=== PATIENT | female | born 1960 | race Caucasian/White ===

== ENCOUNTER 2017-05-25 15:33 | Emergency (ER) | payer BC, OTHER ==
[~2017-05-25] VITALS: Ht 172.7 cm; Wt 102.1 kg
--- OUTSIDE RECORDS SUMMARY | 2017-05-25 15:36 | XMS REPORT | Clinical Summary ---
Author Author JOHAN [email or web address] [facility] [employer] [facility] Address Unknown Phone Unavailable Care Team Providers Care Assurance Auditor Name Role Phone PCP Unavailable Allergies Active Allergy Reactions Severity Noted Date Comments Iodinated Contrast- Oral Anaphylaxis High 10/04/2016 And Iv Dye Morpholine Analogues Itching 10/04/2016 Current Medications Prescription Sig. Disp. Refills Start End Date Status Date levothyroxine (SYNTHROID, Take 100 mcg by mouth Active LEVOTHROID) 100 MCG Every morning on an empty tablet stomach. rOPINIRole (REQUIP) 2 MG Take 2 mg by mouth Active tablet nightly. aspirin 81 MG EC tablet Take 1 tablet (81 mg 30 tablet 0 10/06/19 Active total) by mouth daily. 17 18 carvedilol (COREG) 3.125 Take 1 tablet (3.125 mg 60 tablet 1 10/06/19 10/06/19 Active MG tablet total) by mouth 2 (two) 17 18 times daily with breakfast and dinner. albuterol HFA (VENTOLIN Inhale 1 puff by mouth 1 Inhaler 0 10/06/19 10/06/19 Active HFA) 90 mcg/actuation via inhaler every 6 (six) 17 18 inhaler hours as needed for Wheezing or Shortness of Breath. benzonatate (TESSALON) Take 1 capsule (200 mg 20 capsule 0 10/06/19 10/13/19 200 MG capsule total) by mouth 3 (three) 17 17 times daily as needed for Cough for up to 7 days. omeprazole (PRILOSEC) 20 Take 1 capsule (20 mg 14 capsule 0 10/06/19 10/20/19 MG capsule total) by mouth daily for 17 17 14 days. Active Problems Problem Noted Date Left ventricular diastolic dysfunction, NYHA class 1 10/05/2016 Dyspnea on exertion 10/04/2016 Atypical chest pain 10/04/2016 Hypertensive urgency 10/04/2016 Bilateral leg edema 10/04/2016 Hypothyroidism 10/04/2016 RLS (restless legs syndrome) 10/04/2016 Encounters Date Type Specialty Care Team Description 10/04/2016 [facility] General Internal Medicine Sesar Mcdaniel MD Shortness of breath - Encounter Deng Torrez MD (Primary Dx) 10/05/2016 10/04/2016 Orders Only General Internal Medicine after 05/24/2016 Social History Tobacco Use Types Packs/Day Years Used Date Never Assessed Sex Assigned at Date Recorded Not on file Last Filed Vital Signs Vital Sign Reading Time Taken Blood Pressure 124/59 10/05/2016 12:11 PM CDT Pulse 84 10/05/2016 12:11 PM CDT Temperature 36.2 C (97.2 F) 10/05/2016 12:11 PM CDT Respiratory Rate 18 10/05/2016 12:11 PM CDT Oxygen Saturation 97% 10/05/2016 12:11 PM CDT Inhaled Oxygen - - Concentration Weight 140.7 kg (310 lb 2 oz) 10/04/2016 9:28 PM CDT Height 172.7 cm (5' 8") 10/04/2016 9:28 PM CDT Body Mass Index 47.15 10/04/2016 9:28 PM CDT Plan of Treatment Not on file Results * RHYTHM STRIP - SCAN (11/01/2016 8:50 AM) Only the most recent of 2 results within the time period is included. * 2D Echo W/Doppler(CW/PW/Color) (10/05/2016 10:41 AM) Component Value Ref Range Ejection Fraction LV EF 62.3 % (55-75) Index 25.3 %/m2 Specimen Performing Laboratory [facility] [address] [place] [id number] Voice:[phone] Transthoracic Echocardiogram Pat.Name:PEBBLES ESCOBEDO Pat.ID:[id number] .Date: 10/05/2016 Refer.MD:DENG TORREZ Exam Time: 10:41:00 AM Study Type:Echo Complete Height:68inWeight:310lb BSA: 2.46 m2 DOBAge:9,56Y Sex: FEMALEBP: 121/59 HR:81 bpmSonogrphr: Julio Bakre, [facility] Pat. Stat.:Inpatient Room:923 Reason for Study:Shortness of breath Procedures:2D ECHO W/ DOPPLER (CW/PW/COLOR) FINDINGS: Rhythm/BP: Regular sinus rhythm during the exam. LV: All of the LV segments appear hyperkinetic. Global LV systolicfunction is hyperdynamic. Mild concentric LV hypertrophy.LVEF by quantitative assessment is increased (>60%).Left ventricular chamber size (by vol index) is normal(female - LVED vol -29-61 ml/m2). The LV endocardiumis adequately visualized. Grade 1 diastolic dysfunction(impaired relaxation and low-normal LA pressure).The LVEF was measured using Morales's single planemethod (apical 4 chamber). LA: LA size is normal (16-34 ml/m2). LA is adequately visualized. RV: RV chamber size is mildly enlarged. Global RV systolic functionis normal. RA: The RA is well visualized. RA cavity size is mildly enlarged. AV: Normal AoV structure and function. No evidence of aortic regurgitation. MV: Normal MV structure and function. No evidence of mitral regurgitation. TV: Normal TV structure and function. No evidence of tricuspid regurgitation.Unable to estimate peak systolic PA pressure;inadequate TR velocity signal. PV: Normal PV structure and function by limited views and Doppler. AO: Aortic root size (Sinus of Valsalva diameter) is normal. Pericard: No pericardial effusion is visualized. A trivial pericardial effusionis suspected based on limited views. Systemic Veins: The inferior vena cava is not visualized. Comparison: No prior exam available for comparison. Quality:Technically adequate exam. MEASUREMENTS: 2D LV EF SinglePlane LV Ad 30.5 cm2(9.5-22.3)* LV CO 5.36 l/min LV As 17.3 cm2(4-11.6)* LV CI 2.18 l/min/m2 HKRIU460 ml (59-136) Index42.9 ml/ m2 LV SV 65.4 ml LVESV 39.6 mlHR 82 bpm Left Ventricle LV A% 43.3 %(36-64) LA Sng Plane LA Vol60.5 mlIndex 24.6 ml/m2 LA Area 20.4 cm2(8.8-23.4) Parasternal Long [place]hees Ao An 2.12 cm (1.4-2.6) LV%fs 51.7 %(25-46)* Ao Rtd 3.2 cmLVPWd 1.2 cm IVSd1.21 cm LA Ds4.2 cm (2.3-3.8)* LVIDd4.7 cm (4.3-5.1) LV Wmn 1.2 cm LVIDs 2.27 cm (2-4) DOPPLER AV LVOT For Flow [id number] cm/s (70-110)* LVOT CO 6.94 l/min LVOT VTI25.6 cmLVOT CI 2.82 l/min/m2 LVOTpkPG5.75 mmHgLVOT Area 3.46 cm2 LVOTmnPG3.02 mmHgHR 78 bpm LVOT SV 88.8 ml Aortic Valve AV DI0.948 SVi (LVOT) 36.1 AV AV For Flow/LUANA AV pkVel 133 cm/s (100-170) AV AC/ET 0.423 AV mnVel98 cm/sAVpkAcRt 2618 cm/s2 AV pkPG 7.06 mmHgAV DeRt 482 cm/s2 AV mnPG 4.47 mmHgArea (VTI) 3.28 cm2(3-5) AV VTI27 cmArea (Benjamin) 3.12 cm2(3-5) AV ET276 msecAV AC 117 msec (83-118) MV E/A Ratio MV pkE64.1 cm/s (60-130) MV E/A 0.812 MV pkA79 cm/s Signed 10/05/2016 12:34 PM Bruno Malagon M.D. Procedure Note Interface, External Ris In - 10/05/2016 12:35 PM CDT Echocardiography Laboratory [address] [place] [address] Voice: [phone] Transthoracic Echocardiogram Pat.Name: PEBBLES ESCOBEDO Pat.ID: [id number] .Date: 10/05/2016 Refer.MD: DENG TORREZ Exam Time: 10:41:00 AM Study Type:Echo Complete Height: 68in Weight: 310lb BSA: 2.46 m2 Age: 1 1960,56Y Sex: FEMALE BP: 121/59 HR: 81 bpm Sonogrphr: ADA Reyes Pat. Stat.:Inpatient Room: 923 Reason for Study:Shortness of breath Procedures:2D ECHO W/ DOPPLER (CW/PW/COLOR) FINDINGS: Rhythm/BP: Regular sinus rhythm during the exam. LV: All of the LV segments appear hyperkinetic. Global LV systolic function is hyperdynamic. Mild concentric LV hypertrophy. LVEF by quantitative assessment is increased (>60%). Left ventricular chamber size (by vol index) is normal (female - LVED vol - 29-61 ml/m2). The LV endocardium is adequately visualized. Grade 1 diastolic dysfunction (impaired relaxation and low-normal LA pressure). The LVEF was measured using Morales's single plane method (apical 4 chamber). LA: LA size is normal (16-34 ml/m2). LA is adequately visualized. RV: RV chamber size is mildly enlarged. Global RV systolic function is normal. RA: The RA is well visualized. RA cavity size is mildly enlarged. AV: Normal AoV structure and function. No evidence of aortic regurgitation. MV: Normal MV structure and function. No evidence of mitral regurgitation. TV: Normal TV structure and function. No evidence of tricuspid regurgitation. Unable to estimate peak systolic PA pressure; inadequate TR velocity signal. PV: Normal PV structure and function by limited views and Doppler. AO: Aortic root size (Sinus of Valsalva diameter) is normal. Pericard: No pericardial effusion is visualized. A trivial pericardial effusion is suspected based on limited views. Systemic Veins: The inferior vena cava is not visualized. Comparison: No prior exam available for comparison. Quality: Technically adequate exam. MEASUREMENTS: 2D LV EF SinglePlane LV Ad 30.5 cm2 (9.5-22.3)* LV CO 5.36 l/min LV As 17.3 cm2 (4-11.6)* LV CI 2.18 l/min/m2 LVEDV 105 ml (59-136) Index 42.9 ml/m2 LV SV 65.4 ml LVESV 39.6 ml HR 82 bpm Left Ventricle LV A% 43.3 % (36-64) LA Sng Plane LA Vol 60.5 ml Index 24.6 ml/m2 LA Area 20.4 cm2 (8.8-23.4) Parasternal Long [place] Ao An 2.12 cm (1.4-2.6) LV%fs 51.7 % (25-46)* Ao Rtd 3.2 cm LVPWd 1.2 cm IVSd 1.21 cm LA Ds 4.2 cm (2.3-3.8)* LVIDd 4.7 cm (4.3-5.1) LV Wmn 1.2 cm LVIDs 2.27 cm (2-4) DOPPLER AV LVOT For Flow LVOTpkVel 120 cm/s (70-110)* LVOT CO 6.94 l/min LVOT VTI 25.6 cm LVOT CI 2.82 l/min/m2 LVOTpkPG 5.75 mmHg LVOT Area 3.46 cm2 LVOTmnPG 3.02 mmHg HR 78 bpm LVOT SV 88.8 ml Aortic Valve AV DI 0.948 SVi (LVOT) 36.1 AV AV For Flow/LUANA AV pkVel 133 cm/s (100-170) AV AC/ET 0.423 AV mnVel 98 cm/s AVpkAcRt 2618 cm/s2 AV pkPG 7.06 mmHg AV DeRt 482 cm/s2 AV mnPG 4.47 mmHg Area (VTI) 3.28 cm2 (3-5) AV VTI 27 cm Area (Benjamin) 3.12 cm2 (3-5) AV ET 276 msec AV AC 117 msec (83-118) MV E/A Ratio MV pkE 64.1 cm/s (60-130) MV E/A 0.812 MV pkA 79 cm/s Signed 10/05/2016 12:34 PM Bruno Malagon M.D. * PERIPHERAL VASCULAR REPORT - SCAN (10/05/2016 7:20 AM) * Hepatic function panel (10/05/2016 4:33 AM) Component Value Ref Range Protein, Total 6.6 6.0 - 8.3 gm/dL Albumin 3.6 3.5 - 5.0 g/dL Total Bilirubin 0.3 0.2 - 1.2 mg/dL Bilirubin, Direct 0.1 0.1 - 0.5 mg/dL Alkaline Phosphatase 77 40 - 150 U/L AST 25 5 - 34 U/L ALT 26 6 - 55 U/L Specimen Performing Laboratory Blood [address] [address] * Basic metabolic panel (10/05/2016 4:33 AM) Only the most recent of 2 results within the time period is included. Component Value Ref Range Sodium 138 136 - 145 meq/L Potassium 3.8 3.5 - 5.1 meq/L Chloride 103 98 - 107 meq/L CO2 26 22 - 29 meq/L BUN 15 7 - 21 mg/dL Creatinine 0.67 0.57 - 1.25 mg/dL Glucose 143 (H) 70 - 105 mg/dL Calcium 9.6 8.4 - 10.2 mg/dL EGFR 90Comment: ESTIMATED GFR IS NOT ACCURATE mL/min/1.73 sq m CREATININE CLEARANCE IN PREDICTING GLOMERULAR FILTRATION RATE. ESTIMATED GFR IS NOT APPLICABLE FOR DIALYSIS PATIENTS. Specimen Performing Laboratory Blood [address] [address] * Venous doppler legs bilateral (10/04/2016 10:05 PM) Component Value Ref Range Ejection Fraction Specimen Performing Laboratory [facility]CHO [facility] MKCKESSON CPACS Impressions Right Impression 1. There is no deep venous obstruction in the common femoral, profunda femoral, femoral, popliteal, posterior tibial or peroneal veins. 2. There is no superficial venous obstruction in the great saphenous vein. Left Impression 1. There is no deep venous obstruction in the common femoral, profunda femoral, femoral, popliteal, posterior tibial or peroneal veins. 2. There is no superficial venous obstruction in the great saphenous vein. Conclusions Summary Venous duplex imaging and compression of the bilateral lower extremities were performed. The veins were adequately visualized. The bilateral venous systems were patent and compressible with no evidence of thrombus. The venous Doppler waveforms were phasic with respiration . Signature Velocities are measured in cm/s ; Diameters are measured in cm Narrative [facility] - Lower Extremities DVT Study Demographics Patient Name Deana ESCOBEDO of Study10/04/2016 LESLIE [id number] Age 56 Visit Number [id number] Gender Female Accession Number [id number] Date of Birth1960 [facility] Deng Temple Room [id number] Physician JoeographJordon SaucedoInterpreting Misael Vidal MD, EMELYN Procedure Type of Study: Veins: Lower Extremities DVT Study, VENOUS DOPPLER LEG, BILATERAL. Indications for Study:Leg swelling. Patient Status:STAT. Study Location:Portable. Technical Quality:Adequate visualization. Risk Factors History of Disease + + + + !Diagnosis!Date !Comments ! + + + + !History/Risk Factors:!10/04/2016! Obesity! ! !!Leg swelling ! ! !!Chest pain ! + + + + Procedure Note Interface, External Ris In - 10/05/2016 4:41 AM CDT PV LAB - Lower Extremities DVT Study Demographics Patient Name PEBBLES ESCOBEDO Date of Study 10/04/2016 LESLIE Age 56 Visit Number [id number] Gender Female Accession Number [id number] Date of 1960 Referring Shan MiKojo Room Number 923 Physician Test Desk Trouble Locator Kendal Saucedo Interpreting Praveena Partida Maxime Physician , RPVI Procedure Type of Study: Veins: Lower Extremities DVT Study, VENOUS DOPPLER LEG, BILATERAL. Indications for Study:Leg swelling. Patient Status:STAT. Study Location:Portable. Technical Quality:Adequate visualization. Risk Factors History of Disease + + + + !Diagnosis !Date !Comments ! + + + + !History/Risk Factors: !10/04/2016!Obesity ! ! ! !Leg swelling ! ! ! !Chest pain ! + + + + Impressions Right Impression 1. There is no deep venous obstruction in the common femoral, profunda femoral, femoral, popliteal, posterior tibial or peroneal veins. 2. There is no superficial venous obstruction in the great saphenous vein. Left Impression 1. There is no deep venous obstruction in the common femoral, profunda femoral, femoral, popliteal, posterior tibial or peroneal veins. 2. There is no superficial venous obstruction in the great saphenous vein. Conclusions Summary Venous duplex imaging and compression of the bilateral lower extremities were performed. The veins were adequately visualized. The bilateral venous systems were patent and compressible with no evidence of thrombus. The venous Doppler waveforms were phasic with respiration . Signature Velocities are measured in cm/s ; Diameters are measured in cm * Troponin I (10/04/2016 8:50 PM) Only the most recent of 2 results within the time period is included. Component Value Ref Range Troponin I <0.01 0.00 - 0.03 ng/mL Specimen Performing Laboratory Blood - Arm, Left [address] [address] Narrative Effective 03/09/2014: Reference Range Change New: 0.00-0.03 Previous 0.00-0.15 Troponin I (TnI) levels must be interpreted in the context of the presenting symptoms and the clinical findings. Elevated TnI levels indicate myocardial damage, but are not specific for ischemic heart disease. Elevated TnI levels are seen in patients with other cardiac conditions (including myocarditis and congestive heart failure), and slight TnI elevations occur in patients with other conditions, including sepsis, renal failure, acidosis, acute neurological disease, and persistent tachyarrhythmia. * TSH (10/04/2016 8:50 PM) Component Value Ref Range TSH 2.15 0.35 - 4.94 uIU/mL Specimen Performing Laboratory Blood - Arm, [place] [address] * Potassium (10/04/2016 8:50 PM) Component Value Ref Range Potassium 3.7 3.5 - 5.1 meq/L Specimen Performing Laboratory Blood - Arm, [place] [address] * Creatine Kinase (CK), Total and MB (10/04/2016 8:50 PM) Only the most recent of 2 results within the time period is included. Component Value Ref Range Total CK 95 29 - 200 U/L CK-MB 1.3 0.0 - 6.6 ng/mL MB Relative Index 1.4 % Specimen Performing Laboratory Blood - Arm, [place] [address] Narrative Effective 03/09/2014: CK-MB Reference Range Change New: 0.0-6.6Previous: 0.0-4.9 CK-MB Reference Range: <6.7Normal 6.7-10.0Borderline >10.0 Abnormal * CT chest without IV contrast (10/04/2016 8:31 PM) Specimen Performing Laboratory Eduquia Narrative FINAL REPORT History: Chest pain, shortness of breath. TECHNIQUE: Helical CT of the chest was performed without contrast utilizing multiple windows, sagittal and coronal reformations. This exam was performed according to our departmental dose optimization program which includes automated exposure control, adjustment of the mA and/or KV according to the patient's size and/or use of iterative reconstruction technique. FINDINGS: The heart, mediastinum and great vessels appear unremarkable. No mediastinal or hilar adenopathy. The central airways are patent. Lungs are clear, free of edema, focal consolidation or visible effusions. No pneumothorax. Bones are unremarkable except for moderate diffuse degenerative changes of the spine. Images obtained through the upper abdomen show diffusely decreased hepatic attenuation, likely representing diffuse fatty infiltration of the liver. Visible portions of the upper abdomen are otherwise unremarkable. IMPRESSION: 1. No acute cardiopulmonary abnormalities. 2. Probable diffuse fatty infiltration of the liver. Signed: Bartolome Schulz MD Report Verified Date/Time:10/04/2016 20:50:44 Reading Location: [facility] Diagnostic Imaging Reading Room - [place] [address] Procedure Note Interface, External Ris In - 10/04/2016 8:52 PM CDT FINAL REPORT History: Chest pain, shortness of breath. TECHNIQUE: Helical CT of the chest was performed without contrast utilizing multiple windows, sagittal and coronal reformations. This exam was performed according to our departmental dose optimization program which includes automated exposure control, adjustment of the mA and/or KV according to the patient's size and/or use of iterative reconstruction technique. FINDINGS: The heart, mediastinum and great vessels appear unremarkable. No mediastinal or hilar adenopathy. The central airways are patent. Lungs are clear, free of edema, focal consolidation or visible effusions. No pneumothorax. Bones are unremarkable except for moderate diffuse degenerative changes of the spine. Images obtained through the upper abdomen show diffusely decreased hepatic attenuation, likely representing diffuse fatty infiltration of the liver. Visible portions of the upper abdomen are otherwise unremarkable. IMPRESSION: 1. No acute cardiopulmonary abnormalities. 2. Probable diffuse fatty infiltration of the liver. Signed: Bartolome Schulz MD Report Verified Date/Time: 10/04/2016 20:50:44 Reading Location: [facility] Diagnostic Imaging Reading Room - [place] [address] * ED ECG Interpretation (10/04/2016 7:41 PM) Sesar Richter MD 10/04/20167:41 PM ECG/EKG Interpretation Date/Time: 10/04/2016 7:40 PM Performed by: SESAR MCDANIEL Authorized by: DENG TORREZ The ECG was interpreted by ED physician. The ECG is interpreted as sinus tachycardia. Rate is tachycardic. Heart rate is 115 BPM. Abnormal conduction noted: LAFB. ST segments normal. T waves normal. [place] is left. ECG reviewed and does not meet STEMI criteria. Comments: LEATHER WHITENER: SR @ 115 BPM * NM lung scan perfusion particulate vent (10/04/2016 5:48 PM) Specimen Performing Laboratory GE RIS Narrative FINAL REPORT PROCEDURE: V/Q LUNG SCAN CPT CODE: 85653 INDICATION: Dyspnea, chest pain PROTOCOL: 10.9 mCi ofXe-133 gas was administered by inhalation. Single breath and rebreathing/washout images were obtained in the anterior and the posterior projections.4.3 mCi of Tc-99m MAA was then injected intravenously, and static perfusion images were obtained in multiple projections. FINDINGS: Ventilation: Initial tracer distribution is physiological. Washout proceeds normally. Perfusion:Tracer distribution is physiological. IMPRESSION: Normal ventilation/perfusion lung scan. Signed: Isidro Castro MD Report Verified Date/Time:10/04/2016 18:34:22 Reading Location: [address] Reading Room Procedure Note Interface, External Ris In - 10/04/2016 6:36 PM CDT FINAL REPORT PROCEDURE: V/Q LUNG SCAN CPT CODE: 49790 INDICATION: Dyspnea, chest pain PROTOCOL: 10.9 mCi of Xe-133 gas was administered by inhalation. Single breath and rebreathing/washout images were obtained in the anterior and the posterior projections. 4.3 mCi of Tc-99m MAA was then injected intravenously, and static perfusion images were obtained in multiple projections. FINDINGS: Ventilation: Initial tracer distribution is physiological. Washout proceeds normally. Perfusion: Tracer distribution is physiological. IMPRESSION: Normal ventilation/perfusion lung scan. Signed: Isidro Castro MD Report Verified Date/Time: 10/04/2016 18:34:22 Reading Location: [address] [place] Reading Room * B-type Natriuretic Factor (BNP) (10/04/2016 4:36 PM) Component Value Ref Range BNP 34 0 - 100 pg/mL Specimen Performing Laboratory Blood [address] [address] * PT/PTT (10/04/2016 4:33 PM) Component Value Ref Range Protime 12.8 11.7 - 14.7 seconds INR 1.0 <=5.9 PTT 26.8 22.5 - 36.0 seconds Specimen Performing Laboratory Blood [address] [address] Narrative RECOMMENDED COUMADIN/WARFARIN INR THERAPY RANGES STANDARD DOSE: 2.0 - 3.0 Includes: PROPHYLAXIS for venous thrombosis, systemic embolization; TREATMENT for venous thrombosis and/or pulmonary embolus. HIGH RISK: Target INR is 2.5-3.5 for patients with mechanical heart valves. * CBC with platelet count + automated diff (10/04/2016 4:33 PM) Component Value Ref Range WBC 9.6 4.0 - 10.0 K/ L RBC 4.77 4.00 - 5.00 M/ L Hemoglobin 12.6 12.0 - 15.0 GM/DL Hematocrit 38.6 36.0 - 45.0 % MCV 80.8 (L) 82.0 - 99.0 fL MCH 26.5 (L) 27.0 - 33.0 pg MCHC 32.8 32.0 - 36.0 GM/DL RDW 15.9 (H) 10.3 - 14.2 % Platelets 177 150 - 430 K/CU MM MPV 9.9 6.5 - 10.5 fL nRBC 0 0 - 0 /100 WBC % Neutros 68 % % Lymphs 24 % % Monos 6 % % Eos 2 % % Baso 0 % # Neutros 6.48 1.80 - 8.00 K/ L # Lymphs 2.32 1.48 - 4.50 K/ L # Monos 0.60 0.00 - 1.30 K/ L # Eos 0.15 0.00 - 0.50 K/ L # Baso 0.04 0.00 - 0.20 K/ L Specimen Performing Laboratory Blood [address] [address] Narrative 0.00 * D-dimer, quantitative (10/04/2016 4:33 PM) Component Value Ref Range D-Dimer, Quant 0.69 (H) <0.50 MG/L FEU Specimen Performing Laboratory Blood [place] [id number] Narrative Intended Use: The D-Dimer Assay can be used to aid in the diagnosis of Deep Vein Thrombosis (DVT) and Pulmonary Embolism Disease (PED). In patients with low pre-test probability, various studies concerning STA Liatest D-dimer test have reported that with a cutoff value of 0.50 MG/L FEU, the Negative Predictive Value (NPV) regarding the exclusion of thrombosis is within 95-100% range. * CBC with platelet count + automated diff (10/04/2016 4:33 PM) Specimen Performing Laboratory Blood Narrative The following orders were created for panel order CBC with platelet count + automated diff. Procedure Abnormality Status --------- - ------ CBC with platelet count ...[[id number]]AbnormalFinal result Please view results for these tests on the individual orders. * Magnesium (10/04/2016 4:33 PM) Component Value Ref Range Magnesium 2.5Comment: Specimen moderately hemolyzed 1.6 - 2.6 mg/dL Specimen Performing Laboratory Blood [address] [address] * ECG 12 lead (10/04/2016 4:25 PM) Specimen Performing Laboratory GE MUSE Narrative Ventricular Rate 115 BPM Atrial Rate 115 BPM P-R Interval 168 ms QRS Duration 86 ms Q-T Interval 314 ms QTC Calculation(Bazett) 434 ms P [place] 38 degrees R [place] -49 degrees T [place] 47 degrees Sinus tachycardia Left anterior fascicular block Possible Anterolateral infarct , age undetermined Abnormal ECG When compared with ECG of 02-FEB-2007 07:53, Vent. rate has increased BY49 BPM Borderline criteria for Anterolateral infarct are now Present T wave inversion no longer evident in Inferior leads Confirmed by MD SHAR, IHAB ([id number]) on 10/05/2016 7:09:50 AM Procedure Note Interface, External Ris In - 10/05/2016 7:09 AM CDT Ventricular Rate 115 BPM Atrial Rate 115 BPM P-R Interval 168 ms QRS Duration 86 ms Q-T Interval 314 ms QTC Calculation(Bazett) 434 ms P [place] 38 degrees R [place] -49 degrees T [place] 47 degrees Sinus tachycardia Left anterior fascicular block Possible Anterolateral infarct , age undetermined Abnormal ECG When compared with ECG of 02-FEB-2007 07:53, Vent. rate has increased BY 49 BPM Borderline criteria for Anterolateral infarct are now Present T wave inversion no longer evident in Inferior leads Confirmed by MD SHAR, IHAB ([id number]) on 10/05/2016 7:09:50 AM after 05/24/2016
--- OUTSIDE RECORDS SUMMARY | 2017-05-25 15:36 | XMS REPORT ---
Author Author [facility] Address Unknown Phone Unavailable Care Team Providers Care Peanut Butter Maker Name Role Phone DEEP MCDANIEL Unavailable Unavailable Problems This patient has no known problems. Allergies, Adverse Reactions, Alerts This patient has no known allergies or adverse reactions. Medications This patient has no known medications. Results Test Description Test Time Test Comments Text Results Atomic Results Result Comments HEPATIC FUNCTION PANEL 2016-10-05 05:14:00 TOTAL PROTEIN (BEAKER) (test begk=420) 6.6 gm/dL 6.0-8.3 ALBUMIN (BEAKER) (test frkc=7880) 3.6 g/dL 3.5-5.0 BILIRUBIN TOTAL (BEAKER) (test ikgx=729) 0.3 mg/dL 0.2-1.2 BILIRUBIN DIRECT (BEAKER) (test ylvn=020) 0.1 mg/dL 0.1-0.5 ALKALINE PHOSPHATASE (BEAKER) (test qfst=454) 77 U/L 40-150 AST (SGOT) (BEAKER) (test nnyg=441) 25 U/L 5-34 ALT (SGPT) (BEAKER) (test udtv=442) 26 U/L 6-55 BASIC METABOLIC [id number] 05:14:00* Test Item Value Reference Range Comments SODIUM (BEAKER) (test depc=754) 138 meq/L 136-145 POTASSIUM (BEAKER) (test qaen=080) 3.8 meq/L 3.5-5.1 CHLORIDE (BEAKER) (test ktfe=519) 103 meq/L 98-107 CO2 (BEAKER) (test sdhh=439) 26 meq/L 22-29 BLOOD UREA NITROGEN (BEAKER) (test ukot=193) 15 mg/dL 7-21 CREATININE (BEAKER) (test vbkv=541) 0.67 mg/dL 0.57-1.25 GLUCOSE RANDOM (BEAKER) (test njyq=395) 143 mg/dL 70-105 CALCIUM (BEAKER) (test bsnz=833) 9.6 mg/dL 8.4-10.2 EGFR (BEAKER) (test hnfn=7235) 90 mL/min/1.73 sq m ESTIMATED GFR IS NOT ACCURATE CREATININE CLEARANCE IN PREDICTING GLOMERULAR FILTRATION RATE. ESTIMATED GFR IS NOT APPLICABLE FOR DIALYSIS PATIENTS. [id number] 21:40:00* Test Item Value Reference Range Comments THYROID STIMULATING HORMONE (JENYAKER) (test zrys=749) 2.15 uIU/mL 0.35-4.94 CREATINE KINASE (CK), TOTAL AND [id number] 21:25:00* Test Item Value Reference Range Comments CREATINE KINASE TOTAL (BEAKER) (test rzmr=998) 95 U/L 29-200 CREATINE KINASE-MB (BEAKER) (test hdvd=930) 1.3 ng/mL 0.0-6.6 CREATINE KINASE-MB INDEX (BEAKER) (test ayaj=283) 1.4 % Effective 03/09/2014: CK-MB Reference Range ChangeNew: 0.0-6.6 Previous: 0.0- 4.9CK-MB Reference Range:<6.7 Normal6.7-10.0 Borderline>10.0 AbnormalTROPONIN [id number] 21:25:00* Test Item Value Reference Range Comments TROPONIN I (JENYAKER) (test yznh=478) < ng/mL 0.00-0.03 Effective 03/09/2014: Reference Range ChangeNew: 0.00-0.03 Previous 0.00- 0.15Troponin I (TnI) levels must be interpreted in [...] failure, acidosis, acute neurological disease, and persistent tachyarrhythmia.[id number] 21:18:00* Test Item Value Reference Range Comments POTASSIUM (BEAKER) (test kjnq=455) 3.7 meq/L 3.5-5.1 [id number] 17:52:00* Test Item Value Reference Range Comments D-DIMER QUANTITATIVE (BEAKER) (test jtkp=172) 0.69 MG/L FEU <0.50 Intended Use: The D-Dimer Assay can be used to aid in the diagnosis of Deep Vein Thrombosis (DVT) and Pulmonary Embolism Disease (PED).In patients with low pre-test probability, various studies concerning STA Liatest D-dimer test have reported that with a cutoff value of 0.50 MG/L FEU, the Negative Predictive Value (NPV) regarding the exclusion of thrombosis is within 95-100% range.CREATINE KINASE (CK), TOTAL AND [id number] 17:21:00* Test Item Value Reference Range Comments CREATINE KINASE TOTAL (BEAKER) (test mani=743) 114 U/L 29-200 CREATINE KINASE-MB (BEAKER) (test pyxb=434) 1.5 ng/mL 0.0-6.6 CREATINE KINASE-MB INDEX (BEAKER) (test lfql=347) 1.3 % Effective 03/09/2014: CK-MB Reference Range ChangeNew: 0.0-6.6 Previous: 0.0- 4.9CK-MB Reference Range:<6.7 Normal6.7-10.0 Borderline>10.0 AbnormalTROPONIN [id number] 17:21:00* Test Item Value Reference Range Comments TROPONIN I (BEAKER) (test kjso=282) < ng/mL 0.00-0.03 Effective 03/09/2014: Reference Range ChangeNew: 0.00-0.03 Previous 0.00- 0.15Troponin I (TnI) levels must be interpreted in [...] failure, acidosis, acute neurological disease, and persistent tachyarrhythmia.B-TYPE NATRIURETIC FACTOR (BNP)2016-10-04 17:18:00* Test Item Value Reference Range Comments B-TYPE NATRIURETIC PEPTIDE (BEAKER) (test fdkg=219) 34 pg/mL 0-100 BASIC METABOLIC [id number] 17:17:00* Test Item Value Reference Range Comments SODIUM (BEAKER) (test uddw=517) 136 meq/L 136-145 POTASSIUM (BEAKER) (test ghbn=594) 5.4 meq/L 3.5-5.1 Specimen moderately hemolyzed CHLORIDE (BEAKER) (test jnhv=751) 103 meq/L 98-107 CO2 (BEAKER) (test hxxn=818) 24 meq/L 22-29 BLOOD UREA NITROGEN (BEAKER) (test dddp=716) 15 mg/dL 7-21 CREATININE (BEAKER) (test inny=905) 0.76 mg/dL 0.57-1.25 Specimen moderately hemolyzed GLUCOSE RANDOM (BEAKER) (test dhhs=279) 147 mg/dL 70-105 CALCIUM (BEAKER) (test wgra=073) 10.2 mg/dL 8.4-10.2 EGFR (BEAKER) (test mfpg=2319) mL/min/1.73 sq m INSUFFICIENT CLINICAL DATA TO CALCULATE ESTIMATED GFR. [id number] 17:15:00* Test Item Value Reference Range Comments MAGNESIUM (BEAKER) (test hbmp=842) 2.5 mg/dL 1.6-2.6 Specimen moderately hemolyzed PT/[id number] 17:12:00* Test Item Value Reference Range Comments PROTIME (BEAKER) (test uill=172) 12.8 seconds 11.7-14.7 INR (BEAKER) (test nrag=102) 1.0 <=5.9 PARTIAL THROMBOPLASTIN TIME (BEAKER) (test ouqe=134) 26.8 seconds 22.5-36.0 RECOMMENDED COUMADIN/WARFARIN INR THERAPY RANGESSTANDARD DOSE: 2.0 - 3.0 Includes: PROPHYLAXIS for venous thrombosis, systemic embolization; TREATMENT for venous thrombosis and/or pulmonary embolus.HIGH RISK: Target INR is 2.5-3.5 for patients with mechanical heart valves.CBC W/PLT COUNT & AUTO [id number] 16:56:00* Test Item Value Reference Range Comments WHITE BLOOD CELL COUNT (BEAKER) (test byhw=642) 9.6 K/ L 4.0-10.0 RED BLOOD CELL COUNT (BEAKER) (test hwjf=257) 4.77 M/ L 4.00-5.00 HEMOGLOBIN (BEAKER) (test fknt=020) 12.6 GM/DL 12.0-15.0 HEMATOCRIT (BEAKER) (test gygc=156) 38.6 % 36.0-45.0 MEAN CORPUSCULAR VOLUME (BEAKER) (test qwwx=974) 80.8 fL 82.0-99.0 MEAN CORPUSCULAR HEMOGLOBIN (BEAKER) (test uesc=001) 26.5 pg 27.0-33.0 MEAN CORPUSCULAR HEMOGLOBIN CONC (BEAKER) (test jukh=119) 32.8 GM/DL 32.0- 36.0 RED CELL DISTRIBUTION WIDTH (BEAKER) (test ddcw=576) 15.9 % 10.3-14.2 PLATELET COUNT (BEAKER) (test gasy=409) 177 K/CU MM 150-430 MEAN PLATELET VOLUME (BEAKER) (test fddv=018) 9.9 fL 6.5-10.5 NUCLEATED RED BLOOD CELLS (BEAKER) (test jkog=387) 0 /100 WBC 0-0 NEUTROPHILS RELATIVE PERCENT (BEAKER) (test dutc=962) 68 % LYMPHOCYTES RELATIVE PERCENT (BEAKER) (test iuuq=001) 24 % MONOCYTES RELATIVE PERCENT (BEAKER) (test bahs=670) 6 % EOSINOPHILS RELATIVE PERCENT (BEAKER) (test apxo=918) 2 % BASOPHILS RELATIVE PERCENT (BEAKER) (test aofp=334) 0 % NEUTROPHILS ABSOLUTE COUNT (BEAKER) (test lxxr=325) 6.48 K/ L 1.80-8.00 LYMPHOCYTES ABSOLUTE COUNT (BEAKER) (test dcjy=627) 2.32 K/ L 1.48-4.50 MONOCYTES ABSOLUTE COUNT (BEAKER) (test orhj=879) 0.60 K/ L 0.00-1.30 EOSINOPHILS ABSOLUTE COUNT (BEAKER) (test pesd=870) 0.15 K/ L 0.00-0.50 BASOPHILS ABSOLUTE COUNT (BEAKER) (test qpwy=935) 0.04 K/ L 0.00-0.20 0.00
[2017-05-25] MEDS ORDERED: KETOROLAC TROMETHAMINE 30 MG/ML VIAL IV STA (15:37)
[2017-05-25] MEDS ORDERED: MORPHINE SULFATE 5 MG/ML VIAL IV ONE (15:45)
[2017-05-25] MEDS ORDERED: DIPHENHYDRAMINE HCL INJ 50 MG/ML VIAL IV ONE (15:45)
[2017-05-25] MEDS ORDERED: CYCLOBENZAPRINE HCL 10 MG TAB PO ONE (17:30)
== END 2017-05-25 17:27 | disposition home or self-care (01) ==
LOC: FSED 15:33
DX: M54.5 Low back pain (principal); S39.012A Strain of muscle, fascia and tendon of lower back, initial encounter; E66.9 Obesity, unspecified; F32.9 Major depressive disorder, single episode, unspecified
CPT/HCPCS: 99284; J1200; J1885; J2270

== ENCOUNTER → 2017-06-11 | Outpatient (CLI) | payer BC | LOC: MAMMO 11:24 | PROVIDERS: ATTEND Emergency Medicine | DX: Z12.31 Encounter for screening mammogram for malignant neoplasm of breast (principal) ==

== ENCOUNTER → 2018-03-28 | Day surgery (SDC) | payer BC ==
[~2018-03-28] MED LIST: AMBIEN10 MG PO; DONNATAL/LIDOCAINE/MAALOX 30 ML SUSP PO ONE; FENTANYL CITRATE/PF 100MCG/2 ML INJ ONE; GLUCAGON FOR INJ 1 MG VIAL ONE; HYOSCYAMINE SULFATE 0.5 MG/ML INJ ONE; KETAMINE HCL INJ 50 MG/ML 10 ML VIAL ONE; LEVAQUIN500 MG PO; LEVOTHYROXINE100 MC1 IV; LEXAPRO10 MG PO; LIDOCAINE HCL 2% LOCAL INJ 5 ML SDV VIAL INJ ONE; LISINOPRIL10 MG PO; MIDAZOLAM HCL 2 MG/2 ML VIAL ONE; ONDANSETRON HCL INJ 2 MG/ML VIAL ONE; PANTOPRAZOLE SO40 MG PO; PRO AIR; PROPOFOL IV EMULSION 10 MG/ML 20 ML VIAL ONE; PROPOFOL IV EMULSION 10 MG/ML 50 ML VIAL ONE; REQUIP2 MG
--- OUTSIDE RECORDS SUMMARY | 2018-03-28 09:07 | XMS REPORT | Clinical Summary ---
Author Author [facility] Address Unknown Phone Unavailable Care Team Providers Care Carpet Sewing Machine Operator Name Role Phone Marsha Johnson MD PCP Unavailable Allergies Comments Active Allergy Reactions Severity Noted Date Iodinated Contrast- Oral Anaphylaxis High 10/04/2016 And Iv Dye Morpholine Analogues Itching 10/04/2016 Medications End Date Status Medication Sig Dispensed Refills Start Date Active levothyroxine (SYNTHROID, Take 100 mcg 0 LEVOTHROID) 100 MCG by mouth tablet Every morning on an empty stomach. Active rOPINIRole (REQUIP) 2 MG Take 2 mg by 0 tablet mouth nightly. 10/05/2017 aspirin 81 MG EC tablet Take 1 tablet 30 tablet 0 (81 mg total) 7 by mouth daily. 10/05/2017 carvedilol (COREG) 3.125 Take 1 tablet 60 tablet 1 MG tablet (3.125 mg 7 total) by mouth 2 (two) times daily with breakfast and dinner. 10/05/2017 albuterol HFA (VENTOLIN Inhale 1 puff 1 Inhaler 0 HFA) 90 mcg/actuation by mouth via 7 inhaler inhaler every 6 (six) hours as needed for Wheezing or Shortness of Breath. Active Problems Problem Noted Date Left ventricular diastolic dysfunction, NYHA class 1 10/05/2016 Dyspnea on exertion 10/04/2016 Atypical chest pain 10/04/2016 Hypertensive urgency 10/04/2016 Bilateral leg edema 10/04/2016 Hypothyroidism 10/04/2016 RLS (restless legs syndrome) 10/04/2016 Social History Date Tobacco Use Types Packs/Day Years Used Never Assessed Sex Assigned at Date Recorded Not on file Industry Job Start Date Occupation Not on file Not on file Not on file Travel End Travel History Travel Start No recent travel history available. Last Filed Vital Signs Not on file Plan of Treatment Not on file Results Not on fileafter 03/27/2017 Insurance Payer Benefit Subscriber ID Type Phone Address Plan / Group [facility] [employer] xxxxxxxxx HMO/POS CARE POS SELECT CHOICE Advance Directives For more information, please contact: [facility] [address] [place] [address] Date Inactivated Comments Code Status Date Activated 10/05/2016 4:15 PM Full Code 10/04/2016 7:16 PM This code status was determined by: Patient
--- NOTE | 2018-03-28 14:37 | Operative Report ---
DATE OF PROCEDURE: March 28, 2018 REFERRING PHYSICIAN: Dr. Meghann Mancuso PROCEDURES PERFORMED 1. Esophagogastroduodenoscopy with biopsies. 2. Colonoscopy with polypectomy. INDICATIONS FOR EGD: Upper abdominal pain. INDICATIONS FOR COLONOSCOPY: Colorectal cancer screening. MEDICATION: Patient was done under MAC. Please see anesthesiologist's note. PROCEDURE: With the patient in the left lateral decubitus position, the flexible fiberoptic Olympus gastroscope was introduced into the esophagus under direct visualization without any difficulty. There was some patchy erythema noted in the distal esophagus. The scope was then advanced with ease into the stomach. Mucosa overlying the antrum and the body revealed some patchy erythema and moderate edema, and biopsies were obtained and sent to stain for H. pylori. There was a minute nodule noted in the body of the stomach, and that was biopsied. The pylorus was of normal contour and shape. It was intubated with ease, and the scope was advanced all the way to the 2nd portion of the duodenum. The scope was then withdrawn slowly. Mucosa overlying the proximal 2nd portion and the duodenal bulb appeared to be within normal limits. The scope was then withdrawn back into the stomach and retroflexed. The mucosa overlying the fundus and the cardia appeared to be within normal limits. The scope was then straightened out. The stomach was decompressed. The scope was subsequently withdrawn. Patient tolerated the procedure well. IMPRESSION 1. Distal esophagitis, mild. 2. Gastritis, biopsied. Biopsies sent to stain for H. pylori. 3. Gastric nodule, body, biopsied. PLAN: Follow up histology. Increase Protonix to 40 mg 1 p.o. a.c. b.i.d. The patient was then turned around. After adequate lubrication of the anal canal, a flexible fiberoptic Olympus colonoscope was inserted into the rectum with ease and advanced all the way to the cecum. Two polyps were snared from the cecum. One polypectomy site was hemoclipped times 2. The scope was then withdrawn slowly. One polyp was snared from the ascending colon. Four polyps were hot biopsied and one polyp was snared from the transverse colon. The descending colon grossly appeared to be within normal limits. Diverticular disease was noted to involve the distal descending and the sigmoid colon. Two polyps were snared and 3 polyps were hot biopsied from the sigmoid, and 4 polyps were hot biopsied from the rectum. The scope was then retroflexed into the distal rectum, and moderate-size internal hemorrhoids were noted, none of which was actively bleeding. The scope was then straightened out. It was subsequently withdrawn. Patient tolerated the procedure well. IMPRESSION 1. Cecal polyps times 2, snared, one polypectomy site hemoclipped times 2. 2. Ascending colon polyp snared times 1. 3. Transverse colon polyps times 5, one snared and four hot biopsied. 4. Diverticulosis. 5. Sigmoid colon polyps, 3 hot biopsied and 2 snared. 6. Rectal polyps times 3, hot biopsied. 7. Internal hemorrhoids, none actively bleeding. PLAN: Follow up histology. Initiate high-fiber, low-fat diet. Initiate high-fiber supplement. A total of 17 polyps were removed from the colon. Timing of followup colonoscopy pending pathology report. Job#: [id number] cc:MEGHANN MANCUSO MD
[2018-03-28 14:40] VITALS: BP 109/76
== END | disposition home or self-care (01) ==
LOC: ENDO 09:05
PROVIDERS: ATTEND Internal Medicine Gastroenterology
DX: K29.50 Unspecified chronic gastritis without bleeding (principal); D12.0 Benign neoplasm of cecum; K31.7 Polyp of stomach and duodenum; K62.1 Rectal polyp; K20.9 Esophagitis, unspecified; K31.89 Other diseases of stomach and duodenum; K57.30 Diverticulosis of large intestine without perforation or abscess without bleeding; K64.8 Other hemorrhoids; I10 Essential (primary) hypertension; E11.9 Type 2 diabetes mellitus without complications; E03.9 Hypothyroidism, unspecified; J40 Bronchitis, not specified as acute or chronic; G47.33 Obstructive sleep apnea (adult) (pediatric); I20.9 Angina pectoris, unspecified; I44.4 Left anterior fascicular block; F32.9 Major depressive disorder, single episode, unspecified; Z91.041 Radiographic dye allergy status; Z88.6 Allergy status to analgesic agent; Z01.810 Encounter for preprocedural cardiovascular examination; Z79.82 Long term (current) use of aspirin; Z79.84 Long term (current) use of oral hypoglycemic drugs; Z68.41 Body mass index [BMI] 40.0-44.9, adult; Z96.653 Presence of artificial knee joint, bilateral; Z87.442 Personal history of urinary calculi
CPT/HCPCS: 36415; 43239; 45384; 45385; 82948; 93005; J1610; J1980; J2001; J2250; J2405; J2704; 45378

== ENCOUNTER → 2018-04-03 | Outpatient (CLI) | payer BC ==
[~2018-04-03] MED LIST changes: -DONNATAL/LIDOCAINE/MAALOX 30 ML SUSP PO ONE; -FENTANYL CITRATE/PF 100MCG/2 ML INJ ONE; -GLUCAGON FOR INJ 1 MG VIAL ONE; -HYOSCYAMINE SULFATE 0.5 MG/ML INJ ONE; -KETAMINE HCL INJ 50 MG/ML 10 ML VIAL ONE; -LIDOCAINE HCL 2% LOCAL INJ 5 ML SDV VIAL INJ ONE; -MIDAZOLAM HCL 2 MG/2 ML VIAL ONE; -ONDANSETRON HCL INJ 2 MG/ML VIAL ONE; -PROPOFOL IV EMULSION 10 MG/ML 20 ML VIAL ONE; -PROPOFOL IV EMULSION 10 MG/ML 50 ML VIAL ONE
--- NOTE | 2018-04-10 08:25 | Diagnostic Imaging Report ---
#[id number] - [id number] #BILATERAL DIGITAL SCREENING MAMMOGRAM WITH CAD: 04/03/2018 CLINICAL: Routine screening. Comparison is made to exam dated: 06/11/2017 mammogram - [facility]. Current study contains 6 films. There are scattered fibroglandular elements in both breasts. Current study was also evaluated with a Computer Aided Detection (CAD) system. There are benign calcifications in both breasts. No significant masses, calcifications, or other findings are seen in either breast. There has been no significant interval change. IMPRESSION: BENIGN There is no mammographic evidence of malignancy. A 1 year screening mammogram is recommended. The patient will be notified by letter of the results. Carlos Stallings Jr., D.O. cw/:04/09/2018 15:14:43 Air Reduction Equipment Operator: Liana MONTOYA)(M), [facility] letter sent: Compared to Prior B9 Mammogram BI-RADS: 2 Benign
== END ==
LOC: MAMMO 10:08
PROVIDERS: ATTEND Family Medicine
DX: Z12.31 Encounter for screening mammogram for malignant neoplasm of breast (principal)
CPT/HCPCS: 77067

== ENCOUNTER 2018-11-14 06:19 | Emergency (ER) | payer BC ==
--- OUTSIDE RECORDS SUMMARY | 2018-11-14 06:22 | XMS REPORT | Clinical Summary ---
Author Author [facility] Address Unknown Phone Unavailable Care Team Providers Care Computational Geneticist Name Role Phone Marsha Johnson MD PCP [...] 2 mg by 0 tablet mouth nightly. Active Problems Problem Noted Date Left ventricular [...] Not on file Results Not on fileafter 11/13/2017 Insurance Payer Benefit Subscriber ID Type Phone Address Plan / Group [facility] H[facility]/POS CARE POS SELECT CHOICE (Home) [place] [address] Advance Directives For more information, please contact: [facility] [address] [place] [address] Date Inactivated Comments Code Status Date Activated 10/05/2016 4:15 PM Full Code 10/04/2016 7:16 PM This code status was determined by: Patient
--- OUTSIDE RECORDS SUMMARY | 2018-11-14 06:22 | XMS REPORT | Continuity of Care Document ---
Author Author [facility] Address Unknown Phone Unavailable Care Team Providers Care Economics Faculty Member Name Role Phone [employer] Unavailable Unavailable Problems Problem Status Onset Date Classification Date Reported Comments Source THYROID DISORDER Active Condition 09/04/2012 [facility] HRT Active Condition 09/04/2012 [facility] KNEE PAIN, RIGHT Inactive Condition 09/04/2012 [facility] BONE SPUR Active Condition 09/04/2012 [facility] KNEE PAIN, BILATERAL Active Condition 09/04/2012 [facility] ARTHRITIS, KNEES, BILATERAL Active Condition 09/04/2012 [facility] DEGENERATIVE JOINT DISEASE, RIGHT KNEE Active Condition 09/04/2012 [facility] LATERAL MENISCUS TEAR Active Condition 09/04/2012 [facility] CHONDROMALACIA PATELLA, BILATERAL Active Condition 09/04/2012 [facility] SYNOVITIS Active Condition 09/04/2012 [facility] MEDIAL MENISCUS TEAR Active Condition 09/04/2012 [facility] DEGENERATIVE JOINT DISEASE, LEFT KNEE Active Condition 09/04/2012 [facility] FOOT PAIN, RIGHT Active Condition 09/04/2012 [facility] CLOSED FRACTURE OF CUBOID BONE Active Condition 09/04/2012 [facility] Medications Medication Details Route Status Patient Instructions Ordering Provider Order Date Source CELEBREX CAPS 1 tab po qd No Longer Active 09/04/2012 [facility] MOBIC 15 MG TABS 1 PO QD No Longer Active 03/22/2010 [facility] PREMARIN 1 tab po qd per other M.D. No Longer Active 03/22/2010 [facility] DARVOCET-N 100 TABS 1 PO q 4-6 hours prn pain No Longer Active 06/20/2009 [facility] LEVOTHYROXINE SODIUM 150 MCG TABS 1 tab po qd Active [facility] Allergies, Adverse Reactions, Alerts Substance Category Reaction Severity Reaction type Status Date Reported Comments Source IODINE Drug allergy IODINE [facility] Immunizations Immunization Date Given Site Status Last Updated Comments Source heptavalent pneumococcal conjugate vaccine (7-valent) #1 06/30/2010 completed [facility] heptavalent pneumococcal conjugate vaccine (7-valent) #2 06/30/2010 completed [facility] heptavalent pneumococcal conjugate vaccine (7-valent) #4 06/30/2010 completed [facility] heptavalent pneumococcal conjugate vaccine (7-valent) #1 03/22/2010 completed [facility] heptavalent pneumococcal conjugate vaccine (7-valent) #2 03/22/2010 completed [facility] heptavalent pneumococcal conjugate vaccine (7-valent) #1 10/19/2009 completed [facility] heptavalent pneumococcal conjugate vaccine (7-valent) #4 10/19/2009 completed [facility] heptavalent pneumococcal conjugate vaccine (7-valent) #2 10/19/2009 completed [facility] heptavalent pneumococcal conjugate vaccine (7-valent) #1 10/07/2009 completed [facility] heptavalent pneumococcal conjugate vaccine (7-valent) #2 10/07/2009 completed [facility] heptavalent pneumococcal conjugate vaccine (7-valent) #4 10/07/2009 completed [facility] heptavalent pneumococcal conjugate vaccine (7-valent) #4 06/22/2009 completed [facility] heptavalent pneumococcal conjugate vaccine (7-valent) #1 06/22/2009 completed [facility] heptavalent pneumococcal conjugate vaccine (7-valent) #2 06/22/2009 completed [facility] heptavalent pneumococcal conjugate vaccine (7-valent) #4 02/28/2009 completed [facility] heptavalent pneumococcal conjugate vaccine (7-valent) #1 02/28/2009 completed [facility] heptavalent pneumococcal conjugate vaccine (7-valent) #1 12/11/2007 completed [facility] heptavalent pneumococcal conjugate vaccine (7-valent) #2 12/11/2007 completed [facility] heptavalent pneumococcal conjugate vaccine (7-valent) #4 12/11/2007 completed [facility] Results No Data Provided for This Section Pathology Reports No Data Provided for This Section Diagnostic Reports No Data Provided for This Section Consultation Notes No Data Provided for This Section Discharge Summaries No Data Provided for This Section History and Physicals No Data Provided for This Section Vital Signs Vital Sign Value Date Comments Source Systolic (mm Hg) 128 09/04/2012 [facility] Diastolic (mm Hg) 97 09/04/2012 [facility] Heart Rate 83 09/04/2012 [facility] Systolic (mm Hg) 127 10/19/2009 [facility] Diastolic (mm Hg) 82 10/19/2009 [facility] Heart Rate 87 10/19/2009 [facility] Systolic (mm Hg) 124 10/07/2009 [facility] Diastolic (mm Hg) 79 10/07/2009 [facility] Heart Rate 74 10/07/2009 [facility] Systolic (mm Hg) 156 06/07/2009 [facility] Diastolic (mm Hg) 90 06/07/2009 [facility] Heart Rate 91 06/07/2009 [facility] Weight 221 02/28/2009 [facility] Systolic (mm Hg) 148 02/28/2009 [facility] Diastolic (mm Hg) 94 02/28/2009 [facility] Heart Rate 75 02/28/2009 [facility] Weight 220 12/11/2007 [facility] Height 68 12/11/2007 [facility] Heart Rate 81 12/11/2007 [facility] Systolic (mm Hg) 107 12/11/2007 [facility] Diastolic (mm Hg) 83 12/11/2007 [facility] Encounters Location Location Details Encounter Type Encounter Number Reason For Visit Attending Provider ADM Date DC Date Status Source [facility] Office Visit [id number] Kashif Muse DPM 09/04/2012 09/04/2012 [facility] Departed Emergency Room [id number] JOANNA NIEVES MD 05/25/2017 05/25/2017 [facility] Procedures No Data Provided for This Section Assessment and Plan No Data Provided for This Section Plan of Care Plan of Care Date Source Discharge Date 05/25/17 5:27pm Disposition HOME, SELF-CARE Condition at Discharge Improved Instructions/Education Provided Back Pain Kidney Stones Forms Provided Work/School Excuse Prescriptions See Medication Section Additional Instructions/Education See [facility]rology and Pain Management Physicians for follow up. Take medications for pain. ED warnings given. 05/25/2017 [facility] Social History Social History Date Source Smoking Status Start Date Stop Date Never Smoker 05/25/2017 [facility] Family History No Data Provided for This Section Advance Directives Order Name Results Value Date Source Advance Directives Advance Directives Directive Response Recorded Date/Time Does the patient have an advance directive? No 07/26/16 10:59am If yes, is advance directive on file with [facility]? No 07/25/16 11:54am If not on file with [facility] will patient provide a copy? No 07/25/16 11:54am Do you have a Directive to Physician? No 05/25/17 3:43pm Do you have a Medical Power of Die Maker Stamping? No 05/25/17 3:43pm Do you have an out of hospital Do Not Resuscitate Order? No 05/25/17 3:43pm Do you have any special needs we should be aware of? No 05/25/17 3:43pm Do you have a support person here with you today? No 05/25/17 3:43pm Did patient receive Notice of Privacy Practices? Yes 05/25/17 3:43pm Did patient receive patient rights and responsibilities? Yes 05/25/17 3:43pm 05/25/2017 [facility] Functional Status No Data Provided for This Section
--- OUTSIDE RECORDS SUMMARY | 2018-11-14 06:22 | XMS REPORT | Continuity of Care Document ---
Author Author [facility] Address Unknown Phone Unavailable Care Team Providers Care Show Host Or Hostess Name Role Phone Almaz SALGADO, Kashif FERNANDEZ Unavailable Insurance Providers Payer name Policy type / Coverage type Policy ID Covered democrat ID Policy [employer] Encounters Encounter Performer Location Date Office Visit Kash[facility] September 04, 2012 Allergies, Adverse Reactions, Alerts Type Substance Reaction Status Drug allergy IODINE Active Problems Problem Effective Dates Problem Status THYROID DISORDER Active HRT Active KNEE PAIN, RIGHT Inactive BONE SPUR Active KNEE PAIN, BILATERAL Active ARTHRITIS, KNEES, BILATERAL Active DEGENERATIVE JOINT DISEASE, RIGHT KNEE Active KNEE PAIN, RIGHT Active LATERAL MENISCUS TEAR Active CHONDROMALACIA PATELLA, BILATERAL Active SYNOVITIS Active MEDIAL MENISCUS TEAR Active DEGENERATIVE JOINT DISEASE, LEFT KNEE Active FOOT PAIN, RIGHT Active CLOSED FRACTURE OF CUBOID BONE Active Medications Medication Instructions Start Date Status DARVOCET-N 100 TABS 1 PO q 4-6 hours prn pain Jun 20, 2009 Inactive MOBIC 15 MG TABS 1 PO QD Inactive LEVOTHYROXINE SODIUM 150 MCG TABS 1 tab po qd Active PREMARIN 1 tab po qd per other M.D. Inactive CELEBREX CAPS 1 tab po qd Inactive Immunizations Vaccine Date Status heptavalent pneumococcal conjugate vaccine (7-valent) #1 Dec 11, 2007 completed heptavalent pneumococcal conjugate vaccine (7-valent) #2 Dec 11, 2007 completed heptavalent pneumococcal conjugate vaccine (7-valent) #4 Dec 11, 2007 completed heptavalent pneumococcal conjugate vaccine (7-valent) #4 Feb 28, 2009 completed heptavalent pneumococcal conjugate vaccine (7-valent) #1 Feb 28, 2009 completed heptavalent pneumococcal conjugate vaccine (7-valent) #4 Jun 22, 2009 completed heptavalent pneumococcal conjugate vaccine (7-valent) #1 Jun 22, 2009 completed heptavalent pneumococcal conjugate vaccine (7-valent) #2 Jun 22, 2009 completed heptavalent pneumococcal conjugate vaccine (7-valent) #1 Oct 07, 2009 completed heptavalent pneumococcal conjugate vaccine (7-valent) #2 Oct 07, 2009 completed heptavalent pneumococcal conjugate vaccine (7-valent) #4 Oct 07, 2009 completed heptavalent pneumococcal conjugate vaccine (7-valent) #1 Oct 19, 2009 completed heptavalent pneumococcal conjugate vaccine (7-valent) #4 Oct 19, 2009 completed heptavalent pneumococcal conjugate vaccine (7-valent) #2 Oct 19, 2009 completed heptavalent pneumococcal conjugate vaccine (7-valent) #1 Mar 22, 2010 completed heptavalent pneumococcal conjugate vaccine (7-valent) #2 Mar 22, 2010 completed heptavalent pneumococcal conjugate vaccine (7-valent) #1 Jun 30, 2010 completed heptavalent pneumococcal conjugate vaccine (7-valent) #2 Jun 30, 2010 completed heptavalent pneumococcal conjugate vaccine (7-valent) #4 Jun 30, 2010 completed Vital Signs Date Description Test Result Dec 11, 2007 weight E&M - 3141-9 WEIGHT 220 lb Dec 11, 2007 height E&M - 8302-2 HEIGHT 68 in Dec 11, 2007 pulse rate E&M - 8867-4 PULSE RATE 81 /min Dec 11, 2007 blood pressure, systolic - 8480-6 BP SYSTOLIC 107 mm Hg Dec 11, 2007 blood pressure, diastolic - 8462-4 BP DIASTOLIC 83 mm Hg Feb 28, 2009 weight E&M - 3141-9 WEIGHT 221 lb Feb 28, 2009 blood pressure, systolic - 8480-6 BP SYSTOLIC 148 mm Hg Feb 28, 2009 blood pressure, diastolic - 8462-4 BP DIASTOLIC 94 mm Hg Feb 28, 2009 pulse rate E&M - 8867-4 PULSE RATE 75 /min Jun 07, 2009 blood pressure, systolic - 8480-6 BP SYSTOLIC 156 mm Hg Jun 07, 2009 blood pressure, diastolic - 8462-4 BP DIASTOLIC 90 mm Hg Jun 07, 2009 pulse rate E&M - 8867-4 PULSE RATE 91 /min Oct 07, 2009 blood pressure, systolic - 8480-6 BP SYSTOLIC 124 mm Hg Oct 07, 2009 blood pressure, diastolic - 8462-4 BP DIASTOLIC 79 mm Hg Oct 07, 2009 pulse rate E&M - 8867-4 PULSE RATE 74 /min Oct 19, 2009 blood pressure, systolic - 8480-6 BP SYSTOLIC 127 mm Hg Oct 19, 2009 blood pressure, diastolic - 8462-4 BP DIASTOLIC 82 mm Hg Oct 19, 2009 pulse rate E&M - 8867-4 PULSE RATE 87 /min September 04, 2012 blood pressure, systolic - 8480-6 BP SYSTOLIC 128 mm Hg September 04, 2012 blood pressure, diastolic - 8462-4 BP DIASTOLIC 97 mm Hg September 04, 2012 pulse rate E&M - 8867-4 PULSE RATE 83 /min
--- OUTSIDE RECORDS SUMMARY | 2018-11-14 06:22 | XMS REPORT ---
Author Author [facility] Address Unknown Phone Unavailable Care Team Providers Care [place] Jerk Name Role Phone Tito MANCUSO Unavailable Unavailable JOANNA NIEVES Unavailable Unavailable JONAS, DEEP Unavailable Unavailable Payers Payer Name Policy Type Policy Number Effective Date Expiration Date Problems This patient has no known problems. Allergies, Adverse Reactions, Alerts Allergy Name Allergy Type Status Severity Reaction(s) Onset Date Inactive Date Treating Clinician Comments iodine DA Active SV 2018-02-25 00:00:00 IVP DYE DA Active U 2004-04-07 00:00:00 No Known Drug Allergies DA Active U 2004-04-07 00:00:00 No Known Food Allergies DA Active U 2004-04-07 00:00:00 No Known Other Allergies DA Active U 2004-04-07 00:00:00 Medications This patient has no known medications. Results Test Description Test Time Test Comments Text Results Atomic Results Result Comments MAMMOGRAPHY DIGITAL SCR BILAT 2018-04-03 12:29:00 [place] [id number] Patient Name: HARRIET ESCOBEDO MR #: [id number] : 1960 Age/Sex: 57/F Req #: [id number] Adm Physician: Ordered by: MEGHANN MANCUSO MD Report #: [id number] Location: MAMMO Room/Bed: Procedure: [id number] MG/MAMMOGRAPHY DIGITAL SCR BILAT Exam Date: 04/03/18 Exam Time: 1040 REPORT STATUS: Signed #[id number] - [id number] #BILATERAL DIGITAL SCREENING MAMMOGRAM WITH CAD: 04/03/2018 CLINICAL: Routine screening. Comparison is made to exam dated: 06/11/2017 mammogram - [facility]. Current study contains 6 films. There are scattered fibroglandular elements in both breasts. Current study was also evaluated with a Computer Aided Detection (CAD) system. There are benign calcifications in both breasts. No significant masses, calcifications, or other findings are seen in either breast. There has been no significant interval change. IMPRESSION: BENIGN There is no mammographic evidence of malignancy. A 1 year screening mammogram is recommended. The patient will be notified by letter of the results. Randa Stallings Jr., D.O. cw/:04/09/2018 15:14:43 Orchestra Teacher: Liana NGUYEN(R)(M), [facility] letter sent: Compared to Prior B9 Mammogram BI-RADS: 2 Benign Dictated By: RANDA STALLINGS DO Electronically S igned By: RANDA STALLINGS DO on 04/09/18 1514 Transcribed By: LUIS DANIEL on 04/09/18 9204 COPY TO: MEGHANN MANCUSO MD HEPATIC FUNCTION PANEL 2016-10-05 05:14:00 TOTAL PROTEIN (BEAKER) (test nvux=399) 6.6 gm/dL 6.0-8.3 ALBUMIN (BEAKER) (test aczf=2099) 3.6 g/dL 3.5-5.0 BILIRUBIN TOTAL (BEAKER) (test xvjs=205) 0.3 mg/dL 0.2-1.2 BILIRUBIN DIRECT (BEAKER) (test lpao=940) 0.1 mg/dL 0.1-0.5 ALKALINE PHOSPHATASE (BEAKER) (test ulpm=665) 77 U/L 40-150 AST (SGOT) (BEAKER) (test xnrh=700) 25 U/L 5-34 ALT (SGPT) (BEAKER) (test xsku=418) 26 U/L 6-55 BASIC METABOLIC [id number] 05:14:00* Test Item Value Reference Range Comments SODIUM (BEAKER) (test didb=454) 138 meq/L 136-145 POTASSIUM (BEAKER) (test txcl=238) 3.8 meq/L 3.5-5.1 CHLORIDE (BEAKER) (test vblw=427) 103 meq/L 98-107 CO2 (BEAKER) (test cail=917) 26 meq/L 22-29 BLOOD UREA NITROGEN (BEAKER) (test nmlj=910) 15 mg/dL 7-21 CREATININE (BEAKER) (test lzun=219) 0.67 mg/dL 0.57-1.25 GLUCOSE RANDOM (BEAKER) (test kaey=032) 143 mg/dL 70-105 CALCIUM (BEAKER) (test zsqr=653) 9.6 mg/dL 8.4-10.2 EGFR (BEAKER) (test mhwl=4735) 90 mL/min/1.73 sq m ESTIMATED GFR IS NOT ACCURATE CREATININE CLEARANCE IN PREDICTING GLOMERULAR FILTRATION RATE. ESTIMATED GFR IS NOT APPLICABLE FOR DIALYSIS PATIENTS. [id number] 21:40:00* Test Item Value Reference Range Comments THYROID STIMULATING HORMONE (BEAKER) (test fsxz=110) 2.15 uIU/mL 0.35-4.94 CREATINE KINASE (CK), TOTAL AND [id number] 21:25:00* Test Item Value Reference Range Comments CREATINE KINASE TOTAL (BEAKER) (test lskh=635) 95 U/L 29-200 CREATINE KINASE-MB (BEAKER) (test ijpo=992) 1.3 ng/mL 0.0-6.6 CREATINE KINASE-MB INDEX (BEAKER) (test vfyw=196) 1.4 % Effective 03/09/2014: CK-MB Reference Range ChangeNew: 0.0-6.6 Previous: 0.0- 4.9CK-MB Reference Range:<6.7 Normal6.7-10.0 Borderline>10.0 Abnormal TROPONIN [id number] 21:25:00* Test Item Value Reference Range Comments TROPONIN I (BEAKER) (test ojlo=950) < ng/mL 0.00-0.03 Effective 03/09/2014: Reference Range ChangeNew: 0.00-0.03 Previous 0.00-0.15T roponin I (TnI) levels must be interpreted in the context of the presenting symp toms and the clinical findings. Elevated TnI levels indicate myocardial damage, but are not specific for ischemic heart disease. Elevated TnI levels are seen in patients with other cardiac conditions (including myocarditis and congestive he art failure), and slight TnI elevations occur in patients with other conditions, including sepsis, renal failure, acidosis, acute neurological disease, and pers istent tachyarrhythmia.[id number] 21:18:00* Test Item Value Reference Range Comments POTASSIUM (JENYAKER) (test kozc=726) 3.7 meq/L 3.5-5.1 [id number] 17:52:00* Test Item Value Reference Range Comments D-DIMER QUANTITATIVE (JENYAKER) (test brpj=433) 0.69 MG/L FEU <0.50 Intended Use: The D-Dimer Assay can be used to aid in the diagnosis of Deep Vein Thrombosis (DVT) and Pulmonary Embolism Disease (PED).In patients with low pre- test probability, various studies concerning STA Liatest D-dimer test have repor lane that with a cutoff value of 0.50 MG/L FEU, the Negative Predictive Value (QUALITY COMPLIANCE CONSULTANT V) regarding the exclusion of thrombosis is within 95-100% range.CREATINE KINASE (CK), TOTAL AND [id number] 17:21:00* Test Item Value Reference Range Comments CREATINE KINASE TOTAL (BEAKER) (test qsug=985) 114 U/L 29-200 CREATINE KINASE-MB (BEAKER) (test emgd=496) 1.5 ng/mL 0.0-6.6 CREATINE KINASE-MB INDEX (BEAKER) (test mmlm=859) 1.3 % Effective 03/09/2014: CK-MB Reference Range ChangeNew: 0.0-6.6 Previous: 0.0- 4.9CK-MB Reference Range:<6.7 Normal6.7-10.0 Borderline>10.0 Abnormal TROPONIN [id number] 17:21:00* Test Item Value Reference Range Comments TROPONIN I (BEAKER) (test drdj=968) < ng/mL 0.00-0.03 Effective 03/09/2014: Reference Range ChangeNew: 0.00-0.03 Previous 0.00-0.15T roponin I (TnI) levels must be interpreted in the context of the presenting symp toms and the clinical findings. Elevated TnI levels indicate myocardial damage, but are not specific for ischemic heart disease. Elevated TnI levels are seen in patients with other cardiac conditions (including myocarditis and congestive he art failure), and slight TnI elevations occur in patients with other conditions, including sepsis, renal failure, acidosis, acute neurological disease, and pers istent tachyarrhythmia.B-TYPE NATRIURETIC FACTOR (BNP)2016-10-04 17:18:00* Test Item Value Reference Range Comments B-TYPE NATRIURETIC PEPTIDE (BEAKER) (test muao=871) 34 pg/mL 0-100 BASIC METABOLIC [id number] 17:17:00* Test Item Value Reference Range Comments SODIUM (BEAKER) (test mqan=699) 136 meq/L 136-145 POTASSIUM (BEAKER) (test adts=875) 5.4 meq/L 3.5-5.1 Specimen moderately hemolyzed CHLORIDE (BEAKER) (test byok=173) 103 meq/L 98-107 CO2 (BEAKER) (test hpea=875) 24 meq/L 22-29 BLOOD UREA NITROGEN (BEAKER) (test bnpe=664) 15 mg/dL 7-21 CREATININE (BEAKER) (test znce=960) 0.76 mg/dL 0.57-1.25 Specimen moderately hemolyzed GLUCOSE RANDOM (BEAKER) (test nbfx=747) 147 mg/dL 70-105 CALCIUM (BEAKER) (test yxvl=824) 10.2 mg/dL 8.4-10.2 EGFR (BEAKER) (test nory=3043) mL/min/1.73 sq m INSUFFICIENT CLINICAL DATA TO CALCULATE ESTIMATED GFR. [id number] 17:15:00* Test Item Value Reference Range Comments MAGNESIUM (BEAKER) (test hiay=304) 2.5 mg/dL 1.6-2.6 Specimen moderately hemolyzed PT/[id number] 17:12:00* Test Item Value Reference Range Comments PROTIME (BEAKER) (test pzjm=469) 12.8 seconds 11.7-14.7 INR (BEAKER) (test bjbe=970) 1.0 <=5.9 PARTIAL THROMBOPLASTIN TIME (BEAKER) (test fqrs=044) 26.8 seconds 22.5-36.0 RECOMMENDED COUMADIN/WARFARIN INR THERAPY RANGESSTANDARD DOSE: 2.0 - 3.0 Inclu mckayla: PROPHYLAXIS for venous thrombosis, systemic embolization; TREATMENT for maddie ous thrombosis and/or pulmonary embolus.HIGH RISK: Target INR is 2.5-3.5 for pat ients with mechanical heart valves.CBC W/PLT COUNT & AUTO [id number] 16:56:00* Test Item Value Reference Range Comments WHITE BLOOD CELL COUNT (BEAKER) (test gjen=683) 9.6 K/ L 4.0-10.0 RED BLOOD CELL COUNT (BEAKER) (test wial=573) 4.77 M/ L 4.00-5.00 HEMOGLOBIN (BEAKER) (test tevy=270) 12.6 GM/DL 12.0-15.0 HEMATOCRIT (BEAKER) (test wauf=284) 38.6 % 36.0-45.0 MEAN CORPUSCULAR VOLUME (BEAKER) (test lkyz=865) 80.8 fL 82.0-99.0 MEAN CORPUSCULAR HEMOGLOBIN (BEAKER) (test qwrq=077) 26.5 pg 27.0-33.0 MEAN CORPUSCULAR HEMOGLOBIN CONC (BEAKER) (test ibhi=941) 32.8 GM/DL 32.0-36.0 RED CELL DISTRIBUTION WIDTH (BEAKER) (test mdku=730) 15.9 % 10.3-14.2 PLATELET COUNT (BEAKER) (test jhiw=827) 177 K/CU MM 150-430 MEAN PLATELET VOLUME (BEAKER) (test stgk=430) 9.9 fL 6.5-10.5 NUCLEATED RED BLOOD CELLS (BEAKER) (test teet=359) 0 /100 WBC 0-0 NEUTROPHILS RELATIVE PERCENT (BEAKER) (test dgqm=838) 68 % LYMPHOCYTES RELATIVE PERCENT (BEAKER) (test vhgq=278) 24 % MONOCYTES RELATIVE PERCENT (BEAKER) (test gtbl=473) 6 % EOSINOPHILS RELATIVE PERCENT (BEAKER) (test eemd=271) 2 % BASOPHILS RELATIVE PERCENT (BEAKER) (test umfk=291) 0 % NEUTROPHILS ABSOLUTE COUNT (BEAKER) (test sumr=447) 6.48 K/ L 1.80-8.00 LYMPHOCYTES ABSOLUTE COUNT (BEAKER) (test gevn=450) 2.32 K/ L 1.48-4.50 MONOCYTES ABSOLUTE COUNT (BEAKER) (test hobu=034) 0.60 K/ L 0.00-1.30 EOSINOPHILS ABSOLUTE COUNT (BEAKER) (test gklm=114) 0.15 K/ L 0.00-0.50 BASOPHILS ABSOLUTE COUNT (BEAKER) (test thcx=278) 0.04 K/ L 0.00-0.20 0.00MAMMOGRAM DIGITAL SCR BI [place] [address] Patient Name: HARRIET ESCOBEDO MR #: [id number] : 1960 Age/Sex: 57/F Req #: [id number] Adm Physician: Ordered by: JOANNA NIEVES MD Report #: [id number] Location: MAMMO Room/Bed: Procedure: [id number] MG/MAMMOGRAM DIGITAL SCR BI E xam Date: 06/11/17 Exam Time: 1146 REPORT STATU S: Signed #[id number] - [id number] #BILATERAL DIGITAL SCREENING MAMMOGR AM WITH CAD: 06/11/2017 CLINICAL: Routine screening. No prior exams were available for comparison. Current study contains 5 films. There are scatte red fibroglandular elements in both breasts. Current study was also evaluate d with a Computer Aided Detection (CAD) system. There are benign calcificati ons in both breasts. No significant masses, calcifications, or other finding s are seen in either breast. IMPRESSION: BENIGN There is no mammographi c evidence of malignancy. A 1 year screening mammogram is recommended. The p atient will be notified by letter of the results. Randa valadez/luis daniel:07/01/2017 07:44:48 Orchestra Teacher: Liana NGUYEN(R)(M), [facility] letter sent: Normal Exam Mammogram BI-RADS: 2 Benign Dictated By: RANDA STALLINGS DO 3 Transcribed By: LUIS DANIEL on 07/01/17743 COPY TO: JOANNA NIEVES MD
[2018-11-14] MEDS ORDERED: KETOROLAC TROMETHAMINE 30 MG/ML VIAL ONE (06:52)
[2018-11-14] MEDS: TAMSULOSIN HCL 0.4 MG CAP PO SCH (06:52)
[2018-11-14] MEDS: SODIUM CHLORIDE 0.9% 1000ML 1,000 ML IV SCH (06:52)
[2018-11-14] MEDS: KETOROLAC TROMETHAMINE 30 MG/ML VIAL IV STA (06:52)
[2018-11-14] MEDS: ONDANSETRON HCL INJ 2MG/ML 2ML 2 MG/ML VIAL IV ONE (06:52)
[2018-11-14] MEDS ORDERED: ONDANSETRON HCL INJ 2MG/ML 2ML 2 MG/ML VIAL ONE (06:52)
[2018-11-14] MEDS: TAMSULOSIN HCL 0.4 MG CAP PO ONE (07:25)
[2018-11-14] MEDS: ONDANSETRON HCL 4 MG ORAL DISINTEGRATING TAB PO PRN (07:29)
--- NOTE | 2018-11-14 07:42 | Diagnostic Imaging Report ---
EXAM: CT Abdomen and Pelvis without contrast INDICATION: Flank pain, query renal stone. COMPARISON: None. TECHNIQUE: Abdomen and pelvis were scanned utilizing a multidetector helical scanner from the lung base to the pubic symphysis without IV Contrast. Lack of IV contrast limits evaluation of vascular and visceral structures. Coronal and sagittal reformations were obtained. Renal stone protocol was performed. COMPLICATIONS: None RADIATION DOSE: Total DLP: 879.1mGy*cm Dose modulation, iterative reconstruction, and/or weight based adjustment of the mA/kV was utilized to reduce the radiation dose to as low as reasonably achievable. FINDINGS: LINES and TUBES: None. LOWER THORAX: Unremarkable HEPATOBILIARY: Diffuse hepatic steatosis. No evidence of focal lesion. No biliary ductal dilation. GALLBLADDER: No radio-opaque stones or sludge. No wall thickening. SPLEEN: No splenomegaly. PANCREAS: No focal masses or ductal dilatation. ADRENALS: No adrenal nodules KIDNEYS/URETERS: Kidneys enhance symmetrically. There is mild right hydronephrosis and hydroureter with a 5 mm right UVJ stone on series 2, image 93. Mild right perinephric stranding and renal edema. No evidence of mass. GI TRACT: No evidence of wall thickening or distension. Appendix is not visualized. There is scattered colonic diverticulosis without CT evidence of diverticulitis. PELVIC ORGANS/BLADDER: Unremarkable. LYMPH NODES: No lymphadenopathy. VESSELS: Unremarkable. PERITONEUM / RETROPERITONEUM: No free air or fluid. BONES AND SOFT TISSUES: No acute osseous abnormality. No suspicious lytic or blastic lesions. Mild degenerative disc changes in the lower thoracic and lumbar spine. CONCLUSION: A 5 mm obstructing right UVJ stone with mild right hydronephrosis. Hepatic steatosis. Signed by: Dr. Sera Richard MD on 11/14/2018 7:39 AM
[2018-11-14 08:22] VITALS: BP 152/87
== END 2018-11-14 08:37 | disposition home or self-care (01) ==
LOC: FSED 06:19
DX: R10.31 Right lower quadrant pain (principal); R11.2 Nausea with vomiting, unspecified; N13.2 Hydronephrosis with renal and ureteral calculous obstruction
CPT/HCPCS: 74176; 80048; 81003; 85025; 96374; 96375; 99284; J1885; J2405; J7030; Q0162